=== PATIENT | female | born 1990 | race Hispanic/Latino ===

== ENCOUNTER 2018-11-01 10:56 | Emergency (ER) | payer SELFPAY ==
[2018-11-01] MEDS ORDERED: Ketorolac Tromethamine 30 MG/ML VIAL ONE (11:35)
[2018-11-01] MEDS ORDERED: Ondansetron PF 4 MG/2 ML Vial ONE (11:35)
[2018-11-01 11:55] LABS: Bilirubin Negative (Negative); Blood, Urine Negative (Negative); Clarity Clear (Clear); Glucose, Urine (Dipstick) Negative (Negative); Leukocyte Negative (Negative); Nitrite Negative (Negative); Pregu Control Background? CLEAR/WHITE (CLR/WHITE); Pregu Control Bar Appear? YES (CONTROL BAR); Protein, Urine (Dipstick) Negative (Neg-Trace); Specific Gravity 1.025 (1.002-1.036); Urobilinogen 0.2 mg/dL (Less than 2)
[2018-11-01 11:56] LABS: Pregnancy Test - Urine (BHCG) Negative (Negative)
[2018-11-01 12:05] LABS: ALT (SGPT) 23 U/L (8-55); AST (SGOT) 19 U/L (5-34); Alkaline Phosphatase 76 U/L (40-150); Anion Gap 13 mmol/L (10-20); BUN (Urea Nitrogen) 14 mg/dL (7.0-18.7); Bilirubin, Total 0.1 mg/dL (0.2-1.2); Calc. Creatinine Clearance 0 mL/min (70-130); Carbon Dioxide 20 mmol/L (22-29); Chloride 109 mmol/L (98-107); Estimated GFR-MDRD Greater than 90; Globulin 3.4 g/dL (2.4-3.5); Glucose 96 mg/dL (70-105); Lipase 32 U/L (8-78); Potassium 3.9 mmol/L (3.5-5.1); Protein, Total 7.4 g/dL (6.0-8.3); Sodium 138 mmol/L (136-145)
[2018-11-01 12:10] LABS: #Basophils 0.2 thou/uL (0.0-0.2); #Eosinphils 1.4 thou/uL (0.0-0.7); #Lymphocytes 2.3 thou/uL (1.20-3.40); #Monocytes 0.6 thou/uL (0.11-0.59); #Neutrophils 4.4 thou/uL (1.40-6.50); %Basophils 1.8 % (0.0-1.0); %Eosinophils 16.3 % (0.0-10.0); %Lymphocytes 25.6 % (21.0-51.0); %Monocytes 6.4 % (0.0-10.0); %Neutrophils 49.9 % (42.0-75.0); Hemoglobin 10.8 g/dL (12.0-16.0); Mean Corpuscular HGB CONC 30.3 g/dL (32.0-36.0); Mean Corpuscular Hemoglobin 24.2 pg (27.0-31.0); Mean Platelet Volume 6.3 fL (7.4-10.4); Platelet Count 327 thou/uL (130-400); Red Blood Cell (RBC) Count 4.44 mill/uL (4.20-5.40); White Blood Cell (WBC) Count 8.8 thou/uL (4.8-10.8)
[2018-11-01 12:12] LABS: Anisocytosis SLIGHT = 6-15 cells (100X) (0-5/hpf); Hypochromia SLIGHT = 6-15 cells (100X) (0-5/hpf); MDiff Complete? YES; Platelet Morphology Comment Appears Adequate
[2018-11-01] MEDS ORDERED: Morphine 4 MG/ML VIAL ONE ×2 (12:29→13:08)
--- NOTE | 2018-11-01 13:02 | CT ---
CT ABDOMEN AND PELVIS WITH IV CONTRAST 11/01/2018 CLINICAL INFORMATION: Abdominal pain which has gotten worse. COMPARISON: None. Technique: Multiple contiguous axial CT images are obtained through the abdomen and pelvis with IV contrast. Cor onal reformatted images are provided. FINDINGS: Lower Chest: within normal limits. Vessels: The abdominal aorta is normal in caliber without evidence of an aortic dissection. Abdomen: Portal vein:Patent Gallbladder: Within normal limits for CT imaging. Liver: within normal limits. Spleen: within normal limits. Pancreas: within normal limits. Adrenals: within normal limits. Kidneys: A subcentimeter too small to characterize hypodense lesion is seen in the inferior pole righ t kidney. There is also a small cortical defect along the posterior aspect junction of the midportion and inferior pole right kidney likely due to area of mild scarring. Kidneys otherwise have a normal CT appearance bilaterally. Bowel: Normal caliber. Appendix: The appendix is visualized and normal in caliber. Peritoneum: No ascites or free air; no fluid collection. Mesentery and Retroperitoneum: No enlarged mesenteric or retroperitoneal lymph nodes. Abdominal Wall: A tiny fat-containing umbilical hernia is present. Pelvis: Reproductive Organs: Low-density structure is seen in the left adnexa measuring 2.4 cm with enhancing bueno which may represent an involuting cyst or dominant follicle. Follow-up pelvic ultrasound in 6-8 weeks is suggested. Pelvis within normal limits. Bladder: within normal limits. Bones: There is pseudoarticulation of the left lateral mass of L5 with S1. No suspicious lytic or scl erotic osseous lesions are identified. IMPRESSION: 1. Hypodense cystic lesion left adnexa with enhancing peripheral margin which may represent an involu ting follicle or cyst. However, follow-up evaluation with pelvic ultrasound in 6-8 weeks is recommended. 2. No acute findings are seen in the abdomen or pelvis. 3. Area of mild scarring right kidney as well as subcentimeter too small to characterize hypodense le valeria inferior pole right kidney.
== END 2018-11-01 14:10 | disposition short-term general hospital (02) ==
LOC: NAV ERS 10:56
DX: R10.11 Right upper quadrant pain (principal)
CPT/HCPCS: 36415; 74177; 80053; 81003; 81025; 83690; 85025; 96374; 96375; 96376; J1885; J2270; J2405